=== PATIENT | male | born 1985 | race Caucasian/White ===

== ENCOUNTER 2018-01-04 13:54 | Observation (INO) | payer SELFPAY ==
[~2018-01-04] VITALS: Ht 180.3 cm; Wt 95.0 kg
[2018-01-04 13:56] VITALS: BP 157/85; PULSE 110; RESP 16; TEMP 98.4; O2SAT 97
--- NOTE | 2018-01-04 14:44 | RADRPT ---
EXAM DATE/TIME: 01/04/2018 14:24 [facility] COMPARISON: No previous studies available for comparison. INDICATIONS : Chest pain, shortness of breath. MEDICAL HISTORY : Hypertension. Asthma. SURGICAL HISTORY : None. ENCOUNTER: Initial ACUITY: 1 day PAIN SCORE: 8/10 LOCATION: chest midline. FINDINGS: PA and lateral views of the chest demonstrate the lungs to be symmetrically aerated without evidence of mass, infiltrate or effusion. The cardiomediastinal contours are unremarkable. Osseous structure s are intact. CONCLUSION: No acute disease. Pipo Betancourt MD on January 04, 2018 at 14:42 Board Certified Radiologist. This report was verified electronically.
[2018-01-04 14:59] LABS: AUTOMATED NEUTROPHIL # 5.6 TH/MM3 (1.8-7.7); BASOPHIL % 0.6 % (0.0-2.0); EOSINOPHIL # 0.2 TH/MM3 (0-0.4); HEMATOCRIT 42.3 % (39.0-51.0); HEMOGLOBIN 14.7 GM/DL (13.0-17.0); LYMPH % 26.8 % (9.0-44.0); LYMPHOCYTE # 2.4 TH/MM3 (1.0-4.8); MEAN CELL VOLUME 91.5 FL (80.0-100.0); MEAN CORPUSCULAR HEMOGLOBIN 31.8 PG (27.0-34.0); MEAN CORPUSCULAR HGB CONC 34.8 % (32.0-36.0); MEAN PLATELET VOLUME 7.3 FL (7.0-11.0); MONO % 7.1 % (0.0-8.0); MONOCYTE # 0.6 TH/MM3 (0-0.9); NEUT % 63.5 % (16.0-70.0); PLATELET COUNT 286 TH/MM3 (150-450); RED BLOOD COUNT 4.62 MIL/MM3 (4.50-5.90); RED CELL DISTRIBUTION WIDTH 13.9 % (11.6-17.2); WHITE BLOOD COUNT 8.8 TH/MM3 (4.0-11.0)
--- NOTE | 2018-01-04 15:13 | PD ---
HPI Chief Complaint: Chest Pain Time Seen by Provider: 15:07 Travel History International Travel<30 days: No Contact w/Intl Traveler<30days: No Traveled to known affect area: No History of Present Illness HPI 32-year-old male patient with history of hypertension presents to the ER today with left-sided chest pains that started on its own while he was at work today, worsens with movements of the left arm. He states he goes to his shoulder, feels tight. He states that there is mild shortness of breath. He denies any fevers, coughing, or any other symptoms. Pain is a 5 out of 10 at rest. Modifying Factors: None Associated Signs & Symptoms: Left-sided chest pain Risk Factors: None PFSH Social History Tobacco Use: Yes Allergies-Medications (Allergen,Severity, Reaction): Coded Allergies: No Known Allergies (Verified Allergy, Unknown, 01/04/18) Reported Meds & Prescriptions Reported Meds & Active Scripts Active No Active Prescriptions or Reported Medications Review of Systems Except as stated in HPI: all other systems reviewed are Neg Physical Exam Narrative GENERAL: Well-developed young white male patient currently in mild distress. Awake and alert 3. SKIN: Focused skin assessment warm/dry. HEAD: Atraumatic. Normocephalic. EYES: Pupils equal and round. No scleral icterus. No injection or drainage. ENT: No nasal bleeding or discharge. Mucous membranes pink and moist. NECK: Trachea midline. No JVD. CHEST: Nontender throughout without deformity or crepitance. No retractions or use of accessory muscles. CARDIOVASCULAR: Regular rate and rhythm. No murmur appreciated. RESPIRATORY: No accessory muscle use. Clear to auscultation. Breath sounds equal bilaterally. GASTROINTESTINAL: Abdomen soft, non-tender, nondistended. Hepatic and splenic margins not palpable. MUSCULOSKELETAL: No obvious deformities. No clubbing. No cyanosis. No edema. NEUROLOGICAL: Awake and alert. No obvious cranial nerve deficits. Motor grossly within normal limits. Normal speech. PSYCHIATRIC: Appropriate mood and affect; insight and judgment normal. Data Data Last Documented VS Vital Signs Date Time Temp Pulse Resp B/P (MAP) Pulse Ox O2 Delivery O2 Flow Rate FiO2 01/04/18 15:26 99 Room Air 01/04/18 13:56 98.4 110 16 157/85 (109) Orders Orders Electrocardiogram (01/04/18 14:05) Complete Blood Count With Diff (01/04/18 14:05) Basic Metabolic Panel (Bmp) (01/04/18 14:05) Ckmb (Isoenzyme) Profile (01/04/18 14:05) Troponin I (01/04/18 14:05) Chest, Pa & Lat (01/04/18 14:05) Cyclobenzaprine (Flexeril) (01/04/18 15:15) D-Dimer (01/04/18 15:14) CKMB (01/04/18 14:40) CKMB% (01/04/18 14:40) Labs Laboratory Tests Test 01/04/18 14:40 01/04/18 15:20 White Blood Count 8.8 TH/MM3 Red Blood Count 4.62 MIL/MM3 Hemoglobin 14.7 GM/DL Hematocrit 42.3 % Mean Corpuscular Volume 91.5 FL Mean Corpuscular Hemoglobin 31.8 PG Mean Corpuscular Hemoglobin Concent 34.8 % Red Cell Distribution Width 13.9 % Platelet Count 286 TH/MM3 Mean Platelet Volume 7.3 FL Neutrophils (%) (Auto) 63.5 % Lymphocytes (%) (Auto) 26.8 % Monocytes (%) (Auto) 7.1 % Eosinophils (%) (Auto) 2.0 % Basophils (%) (Auto) 0.6 % Neutrophils # (Auto) 5.6 TH/MM3 Lymphocytes # (Auto) 2.4 TH/MM3 Monocytes # (Auto) 0.6 TH/MM3 Eosinophils # (Auto) 0.2 TH/MM3 Basophils # (Auto) 0.0 TH/MM3 CBC Comment DIFF FINAL Differential Comment Blood Urea Nitrogen 12 MG/DL Creatinine 0.81 MG/DL Random Glucose 146 MG/DL Calcium Level 8.7 MG/DL Sodium Level 139 MEQ/L Potassium Level 3.5 MEQ/L Chloride Level 107 MEQ/L Carbon Dioxide Level 25.6 MEQ/L Anion Gap 6 MEQ/L Estimat Glomerular Filtration Rate 110 ML/MIN Total Creatine Kinase 101 U/L Creatine Kinase MB 1.0 NG/ML Troponin I LESS THAN 0.02 NG/ML D-Dimer Quantitative (PE/DVT) LESS THAN 0.19 MG/L FEU MDM Medical Decision Making Medical Screen Exam Complete: Yes Emergency Medical Condition: Yes Medical Record Reviewed: Yes Interpretation(s) EKG shows NSR, no ST elevation or depression, and no arrhythmias. No significant T-wave inversions. Laboratory Tests Test 01/04/18 14:40 01/04/18 15:20 Random Glucose 146 MG/DL (74-106) Troponin I LESS THAN 0.02 NG/ML Last 24 hours Impressions Chest X-Ray 01/04/18 1405 Signed Impressions: Service Date/Time: , January 04, 2018 14:24 - CONCLUSION: No acute disease. Pipo Betancourt MD Differential Diagnosis Atypical chest pains: ACS versus dysrhythmias versus costochondritis versus pleurisy versus pneumonia Narrative Course EKG, chest x-ray, and cardiac enzymes are negative. D-dimer is negative. However, considering patient's risk factors, my plan would be to admit the patient for further evaluation and the chest pain center. Diagnosis Primary Impression: Chest pain Admitting Information Admitting Physician Requests: Admit Scripts No Active Prescriptions or Reported Meds Srinivas Glass MD Jan 04, 2018 15:13
[2018-01-04] MEDS ORDERED: CYCLOBENZAPRINE HCL 10 MG TAB PO ONE (15:15)
[2018-01-04 15:26] LABS: BICARBONATE 25.6 MEQ/L (21.0-32.0); BLOOD UREA NITROGEN 12 MG/DL (7-18); CALCIUM 8.7 MG/DL (8.5-10.1); CHLORIDE 107 MEQ/L (98-107); CREATININE 0.81 MG/DL (0.60-1.30); GLOMERULAR FILTRATION RATE 110 ML/MIN (>89); GLUCOSE,RANDOM 146 MG/DL (74-106); SODIUM (NA) 139 MEQ/L (136-145)
[2018-01-04 15:30] LABS: TROPONIN I LESS THAN 0.02 NG/ML (0.02-0.05)
[2018-01-04] MEDS ORDERED: ACETAMINOPHEN 500 MG CPLT PO PRN (17:00)
[2018-01-04] MEDS ORDERED: NITROGLYCERIN 0.4 MG SL 25 TABS/BTL SL PRN (17:00)
[2018-01-04] MEDS ORDERED: ONDANSETRON HCL 4 MG/2 ML VIAL IV PUSH PRN (17:00)
[2018-01-04] MEDS ORDERED: SODIUM CHLORIDE 0.9% FLUSH 10 ML FLUSH IV FLUSH PRN (17:00)
[2018-01-04 17:02] VITALS: O2SAT 99
--- NOTE | 2018-01-04 17:49 | HHI.HP ---
HPI Primary Care Physician No Primary Care Physician Chief Complaint Chest pain History of Present Illness 32-year-old male who is a current smoker presents to emergency room for further evaluation of chest pain. 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 Location substernal. Characterized as a "clutching, deep crushing pain." Duration constant waxing and waning in intensity, rating varied intensity between 4-8/10. No associated symptoms of shortness of breath, nausea, vomiting , or dyspnea. Inspiratory breathing, sitting straight up, and raising his right arm above head makes pain worse. Laying flat or slightly back makes pain better. Palpation does not effect discomfort. Endorses similar discomfort x2 days ago when reaching for cigarettes on [employer], however discomfort lasted only seconds. 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 Continued to scrap tiles after onset of discomfort. Movement of scraping made discomfort worse therefore came to ER for further evaluation. Denies any recent injury or trauma or performing any unusually movements to explain discomfort. Review of Systems General: No fatigue,weakness, fever, chills, recent illness, or change in appetite. Has been in his general state help. HEENT: History of migraines diagnosed as a young child, current headache. No vision changes, no nasal congestion or drainage, no dysphasia CV: Continues to have chest pain as stated above. No palpitations, intermittent leg pain, or dizziness. RESP: Discomfort made worse during inspiration. No SOB, cough, or wheeze. GI: No nausea, vomiting, bowel changes, diarrhea, constipation, pain, or distention. No unintentional weight gain or weight loss. : No dysuria, urgency, frequency EXT: No lower leg edema, no paraesthesias MS: No recent injury, trauma, or change in ROM. Moving right arm and right shoulder is painless however reproduces substernal chest pain. NEURO: No LOC, motor/sensory deficits PSYCH: No anxiety, depression SKIN: No rashes, no concerning lesions Past Family Social History Allergies: Coded Allergies: No Known Allergies (Verified Allergy, Unknown, 01/04/18) Past Medical History Migraines, current smoker Reported Medications Reported Meds & Active Scripts Active No Active Prescriptions or Reported Medications Active Ordered Medications Current Medications Medications (Trade) Dose Ordered Sig/Jalen Route Start Time Stop Time Status Last Admin (NS Flush) 2 ml UNSCH PRN IV FLUSH 2/15/18 17:00 (NS Flush) 2 ml BID IV FLUSH 01/04/18 21:00 (Tylenol) 500 mg Q4H PRN PO 01/04/18 17:00 (Zofran Inj) 4 mg Q6H PRN IV PUSH 01/04/18 17:00 (Nitrostat Sl) 0.4 mg Q5M PRN SL 01/04/18 17:00 (Aspirin) 325 mg DAILY PO 01/05/18 09:00 Family History Noncontributory for early onset cardiovascular disease. Mother age 67-DM, CHF, Father stage 4 lung cancer with metastasis. Social History Never diagnosed with diabetes, hyperlipidemia, or hypertension. Current smoker 1/2 pack/daily, began smoking age 14. Approximately 9 pack year history. Rare alcohol. Lives in [place]. Currently working [employer] mostly in [employer]. Past Cardiac Testing None Physical Exam Vital Signs Vital Signs Date Time Temp Pulse Resp B/P (MAP) Pulse Ox O2 Delivery O2 Flow Rate FiO2 01/04/18 17:02 99 21 01/04/18 15:26 99 Room Air 01/04/18 13:56 98.4 110 16 157/85 (109) 97 Physical Exam GENERAL: Alert WN, WD, NAD, pleasant, male HEAD: NC, AT EYES: Sclera clear, conjunctiva without injection, pupils equal and round ENT: Mucous membranes pink and moist NECK: Supple, no masses, trachea midline CV: RRR, without murmur, rub, gallop, no JVD, S1-S2 no S3-S4. No carotid bruits. Chest wall nontender with palpation. RESP: Clear lungs throughout bilateral, no crackles, wheeze, rhonchi, symmetrical chest rise, nonlabored, able to speak in full sentences ABD: Soft, NT, ND, no masses, positive bowel tones EXT: Pulses +24, no dependent edema MS: Normal tone 4 extremities, nontender, no obvious deformities, full range of motion NEURO: CN II through CN XII grossly intact, motor strength 5/5 PSYCH: A+O 3, pleasant affect, appropriate speech, mood, insight and judgment SKIN: Normal turgor, normal texture, no lesions, no rashes, brisk cap refill, even hair distribution, multiple tattoos Laboratory Laboratory Tests Test 01/04/18 14:40 01/04/18 15:20 White Blood Count 8.8 Red Blood Count 4.62 Hemoglobin 14.7 Hematocrit 42.3 Mean Corpuscular Volume 91.5 Mean Corpuscular Hemoglobin 31.8 Mean Corpuscular Hemoglobin Concent 34.8 Red Cell Distribution Width 13.9 Platelet Count 286 Mean Platelet Volume 7.3 Neutrophils (%) (Auto) 63.5 Lymphocytes (%) (Auto) 26.8 Monocytes (%) (Auto) 7.1 Eosinophils (%) (Auto) 2.0 Basophils (%) (Auto) 0.6 Neutrophils # (Auto) 5.6 Lymphocytes # (Auto) 2.4 Monocytes # (Auto) 0.6 Eosinophils # (Auto) 0.2 Basophils # (Auto) 0.0 CBC Comment DIFF FINAL Differential Comment Blood Urea Nitrogen 12 Creatinine 0.81 Random Glucose 146 Calcium Level 8.7 Sodium Level 139 Potassium Level 3.5 Chloride Level 107 Carbon Dioxide Level 25.6 Anion Gap 6 Estimat Glomerular Filtration Rate 110 Total Creatine Kinase 101 Creatine Kinase MB 1.0 Troponin I LESS THAN 0.02 D-Dimer Quantitative (PE/DVT) LESS THAN 0.19 Result Diagram: 01/04/18 1440 01/04/18 1440 Imaging Last 48 hours Impressions Chest X-Ray 01/04/18 1405 Signed Impressions: Service Date/Time: December 14:24 - CONCLUSION: No acute disease. Pipo Betancourt MD Course EKG Normotensive, normal axis, no ST or T-segment changes Caprini VTE Risk Assessment Caprini VTE Risk Assessment: No/Low Risk (score <= 1) Caprini Risk Assessment Model Point Value = 1 Point Value = 2 Point Value = 3 Point Value = 5 Age 41-60 Minor surgery BMI > 25 kg/m2 Swollen legs Varicose veins or History of unexplained or recurrent spontaneous Oral contraceptives or hormone replacement Sepsis (< 1 month) Serious lung disease, including pneumonia (< 1 month) Abnormal pulmonary function Acute myocardial infarction Congestive heart failure (< 1 month) History of inflammatory bowel disease Medical patient at bed rest Age 61-74 Arthroscopic surgery Major open surgery (> 45 min) Laparoscopic surgery (> 45 min) Malignancy Confined to bed (> 72 hours) Immobilizing plaster cast Central venous access Age >= 75 History of VTE Family history of VTE Factor V Leiden Prothrombin [id number] Lupus anticoagulant Anticardiolipin antibodies Elevated serum homocysteine Heparin-induced thrombocytopenia Other congenital or acquired thrombophilia Stroke (< 1 month) Elective arthroplasty Hip, pelvis, or leg fracture Acute spinal cord injury (< 1 month) Prophylaxis Regimen Total Risk Factor Score Risk Level Prophylaxis Regimen 0-1 Low Early ambulation 2 Moderate Order ONE of the following: *Sequential Compression Device (SCD) *Heparin 5000 units SQ BID 3-4 Higher Order ONE of the following medications: *Heparin 5000 units SQ TID *Enoxaparin/Lovenox 40 mg SQ daily (WT < 150 kg, CrCl > 30 mL/min) *Enoxaparin/Lovenox 30 mg SQ daily (WT < 150 kg, CrCl > 10-29 mL/min) *Enoxaparin/Lovenox 30 mg SQ BID (WT < 150 kg, CrCl > 30 mL/min) AND/OR *Sequential Compression Device (SCD) 5 or more Highest Order ONE of the following medications: *Heparin 5000 units SQ TID (Preferred with Epidurals) *Enoxaparin/Lovenox 40 mg SQ daily (WT < 150 kg, CrCl > 30 mL/min) *Enoxaparin/Lovenox 30 mg SQ daily (WT < 150 kg, CrCl > 10-29 mL/min) *Enoxaparin/Lovenox 30 mg SQ BID (WT < 150 kg, CrCl > 30 mL/min) AND *Sequential Compression Device (SCD) Assessment and Plan Assessment and Plan #1 Atypical chest pain-admitted chest pain center. Rule out with 3 sets of EKGs , cardiac and monitored overnight. Will be seen and evaluated by Dr. Thi Corea in a.m. Reassurance provided discomfort not likely cardiac related due to length greater than 8 hours. Patient agreeable for overnight stay. #2 Musculoskeletal pain-Toradol 30 mg IV x1 dose now and repeat in 6 hours. Reassess in am. #3 Tobacco use-dry encouraged and stressed the importance of tobacco cessation. Instructed to quit smoking. Alisia Ruiz Jan 04, 2018 17:49
[2018-01-04] MEDS: KETOROLAC TROMETHAMINE 30 MG/ML (IVP) VIAL IV PUSH SCH ×2 (18:18→23:48)
[2018-01-04 18:26] LABS: TROPONIN I LESS THAN 0.02 NG/ML (0.02-0.05)
[2018-01-04 19:31] VITALS: O2SAT 98
[2018-01-04 19:50] VITALS: BP 140/82; PULSE 63; RESP 17; TEMP 98.2; O2SAT 97
[2018-01-04] MEDS: SODIUM CHLORIDE 0.9% FLUSH 10 ML FLUSH IV FLUSH SCH (20:40)
[2018-01-04 21:49] LABS: TROPONIN I LESS THAN 0.02 NG/ML (0.02-0.05)
[2018-01-04 23:02] VITALS: BP 113/69; PULSE 59; RESP 16; TEMP 96.5; O2SAT 96
[2018-01-05 00:01] VITALS: PULSE 57
[2018-01-05 03:38] VITALS: BP 122/63; PULSE 53; RESP 20; TEMP 98.5; O2SAT 96
[2018-01-05 08:05] VITALS: PULSE 58
[2018-01-05] MEDS: SODIUM CHLORIDE 0.9% FLUSH 10 ML FLUSH IV FLUSH SCH (08:26)
[2018-01-05 08:37] VITALS: BP 140/78; PULSE 58; RESP 20; TEMP 97.9; O2SAT 98
[2018-01-05] MEDS ORDERED: ASPIRIN 325 MG TAB PO SCH (09:00)
[2018-01-05] MEDS ORDERED: SODIUM CHLOR 0.9% 1000 ML INJ 1,000 ML IV ONE (12:00)
[2018-01-05 12:22] VITALS: BP 166/77; PULSE 96; RESP 20; TEMP 97.9; O2SAT 98
[2018-01-05 12:25] VITALS: PULSE 55
[2018-01-05] MEDS ORDERED: REGADENOSON INJ 0.4 MG/5 ML SYR ONE (13:28)
--- NOTE | 2018-01-05 14:24 | RADRPT ---
EXAM DATE/TIME: 01/05/2018 12:57 [facility] COMPARISON: No previous studies available for comparison. INDICATIONS : Left chest pain radiating to the the left arm with dyspnea. Angina. DOSE: 27.2 mCi Tc99m Myoview at stress. 8.8 mCi Tc99m Myoview at rest. 0.4 mg Lexiscan STRESS SYMPTOMS: Stomach pain. EJECTION FRACTION: 52% MEDICAL HISTORY : Hypertension. Smoker. SURGICAL HISTORY : None. ENCOUNTER: Initial ACUITY: 1 day PAIN SCALE: 4/10 LOCATION: Left chest TECHNIQUE: The patient underwent pharmacologic stress with infusion of prescribed dose. Continuous ECG tracing was monitored during stress. Gated SPECT imaging was performed after stress and conventional SPECT i maging was performed at rest. The examination was performed on a SPECT/CT scanner, both attenuation and non-corrected datasets were reviewed. FINDINGS: DISTRIBUTION: The maximum perfused segment at stress is in the inferoseptal wall. PERFUSION STUDY: The pattern of perfusion at stress is within normal limits. GATED STUDY: There is intact wall motion and thickening without hypokinetic or dyskinetic segments. CONCLUSION: 1. No reversible perfusion defect to indicate stress-induced myocardial ischemia identified. RISK CATEGORY: Low (<1% Annual Mortality Rate) Tello Solano MD on January 05, 2018 at 14:22 Board Certified Radiologist. This report was verified electronically.
--- NOTE | 2018-01-05 14:58 | HHI.DCPOC ---
Discharge Care Plan Diagnosis: (1) Chest pain (2) Tobacco abuse Goals to Promote Your Health * To prevent worsening of your condition and complications * To maintain your health at the optimal level Directions to Meet Your Goals Take your medications as prescribed Follow your dietary instruction Follow activity as directed Keep your appointments as scheduled Take your immunizations and boosters as scheduled If your symptoms worsen call your PCP, if no PCP go to Urgent Care Center or Emergency Room Smoking is Dangerous to Your Health. Avoid second hand smoke Call the 24-hour hour crisis hotline for domestic abuse at [facility] [place] Jan 05, 2018 14:58
--- NOTE | 2018-01-05 16:21 | TR ---
Date Performed: 01/05/2018 Time Performed: 10:29:16 DOCTOR: Thi Corea DRUG LIST: CLINICAL HISTORY: REASON FOR TEST: REASON FOR ENDING: OBSERVATION: CONCLUSION: KHAI PROTOCOL. NO CP. TEST STOPPED PRIOR TO REACHING GOAL HR SECONDARY TO SOB, LEG FATIGUE, AND DIZZINESS.Maximum XD=541 % Max HR Achieved=76.0% Total Exercise Time=10:29 COMMENTS:
--- NOTE | 2018-01-05 16:21 | TR ---
Date Performed: 01/05/2018 Time Performed: 13:14:09 DOCTOR: Thi Corea DRUG LIST: CLINICAL HISTORY: REASON FOR TEST: CHEST PAIN REASON FOR ENDING: OBSERVATION: CONCLUSION: Lexiscan stress test was performed under standard four minute protocol. Radionuclid e was injected one minute prior to ending the test. No electrocardiographic abormalities were present to suggest ischemia. Nuclear imaging and interpretation are pending. COMMENTS:
--- NOTE | 2018-01-05 16:23 | EKG ---
Date Performed: 01/04/2018 Time Performed: 20:31:11 PTAGE: 32 years EKG: SINUS BRADYCARDIA BORDERLINE ECG Since PREVIOUS TRACING , no significant change noted PREVIOUS TRACIN01/04/2018 17.32 DOCTOR: Thi Corea Interpretating Date/Time 01/05/2018 16:22:40
--- NOTE | 2018-01-05 16:24 | EKG ---
Date Performed: 01/04/2018 Time Performed: 17:32:42 PTAGE: 32 years EKG: SINUS BRADYCARDIA POSSIBLE INFERIOR MYOCARDIAL INFARCTION ABNORMAL ECG Since PREVIOUS TRACING , no significant change noted PREVIOUS TRACIN01/04/2018 14.15 DOCTOR: Thi Corea Interpretating Date/Time 01/05/2018 16:23:04
--- NOTE | 2018-01-05 16:24 | EKG ---
Date Performed: 01/04/2018 Time Performed: 14:15:35 PTAGE: 32 years EKG: Sinus rhythm NORMAL ECG NO PREVIOUS TRACING DOCTOR: Thi Corea Interpretating Date/Time 01/05/2018 16:23:22
== END 2018-01-05 15:23 | disposition home or self-care (01) ==
LOC: NEPC 13:54 → NEDA 16:40 → NEPGCP 17:54
PROVIDERS: ADMIT Internal Medicine Interventional Cardiology; ATTEND Internal Medicine Interventional Cardiology
DX: R07.89 Other chest pain (principal); M79.1 Myalgia; G43.909 Migraine, unspecified, not intractable, without status migrainosus; R00.1 Bradycardia, unspecified; R94.31 Abnormal electrocardiogram [ECG] [EKG]; R06.02 Shortness of breath; I20.9 Angina pectoris, unspecified; R10.9 Unspecified abdominal pain; I10 Essential (primary) hypertension; J45.909 Unspecified asthma, uncomplicated; F17.200 Nicotine dependence, unspecified, uncomplicated
CPT/HCPCS: 71046; 78452; 80048; 82550; 82552; 84484; 85025; 85379; 93005; 93017; 96361; 96374; 96376; 99285; A9502; G0378; J1885; J2785; J7030